=== PATIENT | female | born 1965 | race African-American/Black ===

== ENCOUNTER 2017-03-30 02:15 | Emergency (ER) | payer MEDICAID ==
[~2017-03-30 02:15] MED LIST: ZYPREXA
[2017-03-30] MEDS ORDERED: ACETAMINOPHEN 325MG TABLET PO ONE (03:00)
[2017-03-30] MEDS ORDERED: QUETIAPINE FUMARATE 100MG TABLET PO ONE (03:00)
[2017-03-30 06:26] VITALS: BP 137/87
== END 2017-03-30 06:46 | disposition home or self-care (01) ==
LOC: ER 02:15
DX: F29 Unspecified psychosis not due to a substance or known physiological condition (principal); F20.9 Schizophrenia, unspecified; Z88.0 Allergy status to penicillin; F17.200 Nicotine dependence, unspecified, uncomplicated; F14.10 Cocaine abuse, uncomplicated; F10.20 Alcohol dependence, uncomplicated; Z91.19 Patient's noncompliance with other medical treatment and regimen
CPT/HCPCS: 99284